=== PATIENT | male | born 1995 | race Caucasian/White ===

== ENCOUNTER 2018-02-09 22:47 | Emergency (ER) | payer OTHER ==
--- NOTE | 2018-02-09 23:32 | RAD ---
THREE VIEWS LEFT SHOULDER: 02/09/18 HISTORY: Left shoulder pain. AP internally, externally and scapular Y-views left shoulder demonstrates no evidence of left shoulde r fracture or subluxations or bony lesions. IMPRESSION: Normal three views left shoulder. POS: [facility]
== END 2018-02-09 23:57 | disposition home or self-care (01) ==
LOC: SCSER 22:47
DX: S46.912A Strain of unspecified muscle, fascia and tendon at shoulder and upper arm level, left arm, initial encounter (principal); X50.1XXA Overexertion from prolonged static or awkward postures, initial encounter